=== PATIENT | female | born 1960 | race Caucasian/White ===

== ENCOUNTER 2019-01-13 10:26 | Day surgery (SDC) | payer BC ==
[2019-01-12 08:44] VITALS: BMI 27.4
[~2019-01-13 10:26] MED LIST: LACTATED RINGERS 1,000 ML IV SCH
[2019-01-13 10:47] VITALS: TEMP 96.9
[2019-01-13] MEDS ORDERED: LIDOCAINE 1% 20 ML VIAL (10MG/ML) FOR IV START INTRADERMA ONE (10:50)
[2019-01-13] MEDS ORDERED: PROPOFOL 10 MG/ML 20 ML VIAL IV ONE (11:32)
--- NOTE | 2019-01-13 11:46 | P.PCN ---
Date of Procedure: 01/13/19 Procedure(s) Performed: BRIEF HISTORY: Patient is a 58-year-old pleasant female scheduled for an elective colonoscopy as a part of screening for colorectal neoplasia. PROCEDURE PERFORMED: Colonoscopy. PREOPERATIVE DIAGNOSIS: Screening for colon cancer. IV sedation per Anesthesia. PROCEDURE: After informed consent was obtained, the patient, was brought into the endoscopy unit. IV sedation was administered by Anesthesia under continuous monitoring. Digital rectal examination was normal. Initially the Olympus CF-160 flexible video colonoscope was then inserted in the rectum, gradually advanced into the cecum without any difficulty. Careful examination was performed as the scope was gradually being withdrawn. Ileocecal valve and the appendiceal orifice were visualized and appeared normal. Prep was excellent. Mucosa of the cecum, ascending colon, transverse colon, descending colon, sigmoid colon, and rectum appeared normal. Scattered sigmoid diverticula seen. Retroflexion was performed in the rectum and no lesions were seen. The patient tolerated the procedure well. IMPRESSION: Normal-appearing colon from rectum to cecum with no evidence of colorectal neoplasia. Scattered sigmoid diverticulosis. RECOMMENDATIONS: Findings of this examination were discussed with the patient surveillance of family. She she was advised to have a repeat screening colonoscopy in 10 years
[2019-01-13 11:54] VITALS: RESP 18
[2019-01-13 12:09] VITALS: BP 128/76; PULSE 71
== END 2019-01-13 12:30 | disposition home or self-care (01) ==
LOC: ORWHC2ENDO 10:26
PROVIDERS: ATTEND Internal Medicine Gastroenterology
DX: Z12.11 Encounter for screening for malignant neoplasm of colon (principal); K57.30 Diverticulosis of large intestine without perforation or abscess without bleeding; M19.90 Unspecified osteoarthritis, unspecified site; Z79.1 Long term (current) use of non-steroidal anti-inflammatories (NSAID)
CPT/HCPCS: J2704; G0121; 45378

== ENCOUNTER → 2019-02-21 | Outpatient (CLI) | payer BC ==
--- NOTE | 2019-02-28 08:07 | HM ---
HOLTER MONITOR REPORT History of palpitations. A [address] Tillman, the monitor shows sinus mechanism with heart rates ranging from 47 to 160 to 173 beats per minute. No significant bradycardia or pauses during the daytime. Mild nighttime bradycardia. No significant bradyarrhythmias. MMODL / MANEN: [id number] /
== END | disposition home or self-care (01) ==
LOC: RADECHMAIN 12:14
PROVIDERS: ATTEND Family Medicine
DX: R00.2 Palpitations (principal); R07.9 Chest pain, unspecified
CPT/HCPCS: 93225; 93226

== ENCOUNTER → 2019-08-03 | Outpatient (CLI) | payer BC ==
--- NOTE | 2019-08-03 14:48 | BD ---
EXAMINATION TYPE: Axial Bone Density DATE OF EXAM: 08/03/2019 COMPARISON: NONE CLINICAL HISTORY: 59 YR OLD FEMALE....ICD-10 CODE: Z78.0 POST MENOPAUSAL Height: 62.3 Weight: 147 FRAX RISK QUESTIONS: NOTHING TO NOTE HERE RISK FACTORS HISTORY OF: NO FXs AFTER AGE 50 Active: YES Postmenopausal woman: YES, AT AGE 50 YRS OLD Hyperparathyroidism: NO Adrenal Insufficiency: NO MEDICATIONS: Additional Medications: CALCIUM AND VIT D RARELY, REFLUX MEDS, Additional History: REFLUX EXAM MEASUREMENTS: Bone mineral densitometry was performed using the [employer] [facility]. Bone mineral density as measured about the Lumbar spine is: ----- L1-L4(G/cm2): 1.122 T Score Values are as follows: ----- L1: 0.0 ----- L2: -0.6 ----- L3: -0.3 ----- L4: -1.1 ----- L1-L4: -0.5 Bone mineral density FIRST DEXA SCAN......BASELINE STUDY Bone mineral density about the R hip (g/cm2): 0.851 Bone mineral density about the L hip (g/cm2): 0.834 T Score values are as follows: -----R Neck: -1.7 -----L Neck: -2.0 -----R Total: -1.2 -----L Total: -1.4 Bone mineral density FIRST DEXA SCAN.....BASELINE STUDY FRAX%s: THERE IS A 9.1% CHANCE FOR A MAJOR OSTEOPOROTIC FX AND A 1.2% FOR HIP .....PROBABILITY FOR FX IN 10 YRS TIME IMPRESSION: Osteopenia (T Score between -2.5 and -1). There is slightly increased risk of fracture and the patient may be considered for treatment. Re-Screen 2-5 years. NOTE: T-SCORE=SD OF THE YOUNG ADULT MEAN.
--- NOTE | 2019-08-07 09:39 | MM ---
Reason for exam: screening (asymptomatic). Last mammogram was performed 5 years and 11 months ago. History: Patient is postmenopausal. Took hormonal contraceptives for 20 years beginning at age 26. Physical Findings: A clinical breast exam by your physician is recommended on an annual basis and results should be correlated with mammographic findings. MG 3D Screening Mammo W/Cad Bilateral CC and MLO view(s) were taken. Prior study comparison: August 22, 2013, bilateral digital screening mammo w/CAD. December 19, 2007, bilateral digital screening mammogram. The breast tissue is heterogeneously dense. This may lower the sensitivity of mammography. There is no discrete abnormality. No significant changes when compared with prior studies. ASSESSMENT: Negative, BI-RAD 1 RECOMMENDATION: Routine screening mammogram of both breasts in 1 year.
== END | disposition home or self-care (01) ==
LOC: RADMAMWWP 13:24
PROVIDERS: ATTEND Family Medicine
DX: Z12.31 Encounter for screening mammogram for malignant neoplasm of breast (principal); M85.80 Other specified disorders of bone density and structure, unspecified site; Z78.0 Asymptomatic menopausal state
CPT/HCPCS: 77063; 77067; 77080

== ENCOUNTER → 2022-04-17 | Outpatient (CLI) | payer BC ==
--- NOTE | 2022-04-17 09:45 | BD ---
EXAMINATION TYPE: Axial Bone Density DATE OF EXAM: 04/17/2022 COMPARISON: FIRST DEXA AT [facility] CLINICAL HISTORY: 62 years year old Female. ICD-10 CODE: Z78.0 ASYMPTOMATIC MENOPAUSAL STA Height: 62.5IN Weight: 149 FRAX RISK QUESTIONS: History of Fracture in Adulthood: YES Secondary Osteoporosis: RISK FACTORS HISTORY OF: Active: YES Postmenopausal woman: YES MEDICATIONS: Additional Medications: GI MED Additional History: EXAM MEASUREMENTS: Bone mineral densitometry was performed using the [employer]. Bone mineral density as measured about the Lumbar spine is: ----- L1-L4(G/cm2): 1.084 T Score Values are as follows: ----- L1: -0.9 ----- L2: -1.0 ----- L3: -0.5 ----- L4: -1.0 ----- L1-L4: -0.8 FIRST DEXA AT [facility] Bone mineral density about the R hip (g/cm2): 0.861 Bone mineral density about the L hip (g/cm2): 0.859 T Score values are as follows: -----R Neck: -1.9 -----L Neck: -2.1 -----R Total: -1.2 -----L Total: -1.2 FIRST DEXA AT [facility] FRAX%s: The graph provided illustrates a 17.4% chance for a major osteoporotic fx and a 2.6% chance f or the hips probability for fx in 10 years time. IMPRESSION: Osteopenia (T Score between -2.5 and -1). There is slightly increased risk of fracture and the patient may be considered for treatment. Re-Screen 2-5 years. NOTE: T-SCORE=SD OF THE YOUNG ADULT MEAN.
--- NOTE | 2022-04-20 09:10 | MM ---
Reason for Exam: Screening (asymptomatic). Last mammogram was performed 2 year(s) and 8 month(s) ago. Patient History: Menarche at age 13. First Full-Term at age 29. Postmenopausal. Patient has history of breast feeding. Hormonal Contraceptives, starting at age 26 for 20 years. Risk Values: Ludy 5 year model risk: 1.6%. NCI Lifetime model risk: 7.9%. Prior Study Comparison: 12/19/2007 Bilateral Screening Mammogram, [facility]. 08/22/2013 Bilateral Screening Mammogram, [facility]. 08/03/2019 Bilateral Screening Mammogram, [facility]. Tissue Density: The breast tissue is heterogeneously dense. This may lower the sensitivity of mammography. Findings: Analyzed By CAD. There is no suspicious group of microcalcifications or new suspicious mass in either breast. Overall Assessment: Negative, BI-RAD 1 Management: Screening Mammogram of both breasts in 1 year. A clinical breast exam by your physician is recommended on an annual basis and results should be correlated with mammographic findings. [facility] will attempt to contact patient to return for supplemental views and ultrasound if indicated. Electronically signed and approved by: Jeremías Duncan DO
== END | disposition home or self-care (01) ==
LOC: RADMAMWWP 08:44
PROVIDERS: ATTEND Family Medicine
DX: Z12.31 Encounter for screening mammogram for malignant neoplasm of breast (principal); M85.89 Other specified disorders of bone density and structure, multiple sites; Z78.0 Asymptomatic menopausal state
CPT/HCPCS: 77063; 77067; 77080

== ENCOUNTER → 2022-05-08 | Outpatient (CLI) | payer BC ==
--- NOTE | 2022-05-08 23:24 | CT ---
EXAMINATION TYPE: CT brain wo con DATE OF EXAM: 05/08/2022 HISTORY: Dizziness and headaches CT DLP: 1153.1 mGycm. Automated Exposure Control for Dose Reduction was Utilized. TECHNIQUE: CT scan of the head is performed without contrast. COMPARISON: None. FINDINGS: There is no acute intracranial hemorrhage or midline shift identified. Ventricles and sul ci within normal limits in size for patient's age. Davalos-white matter differentiation fairly well main tained. Nasal septum deviated to right of midline. No suspicious opacification of mastoid air cells i s seen. The globes are intact and the visualized sinuses are clear. IMPRESSION: No acute intracranial hemorrhage or midline shift. Unremarkable study.
== END | disposition home or self-care (01) ==
LOC: RADCTMAIN 18:31
PROVIDERS: ATTEND Family Medicine
DX: R51.9 Headache, unspecified (principal); R42 Dizziness and giddiness
CPT/HCPCS: 70450

== ENCOUNTER → 2023-03-30 | Outpatient (CLI) | payer BC ==
--- NOTE | 2023-03-30 21:13 | US ---
EXAMINATION TYPE: US carotid duplex BILAT DATE OF EXAM: 03/30/2023 COMPARISON: NONE CLINICAL INDICATION: Female, 62 years old with history of R42 DIZZINESS AND GIDDINESS; DIZZINESS X 2 YEARS TECHNIQUE: Carotid duplex ultrasound examination. Indirect Doppler criteria was utilized. FINDINGS: EXAM MEASUREMENTS: RIGHT: Peak Systolic Velocity (PSV) cm/sec ----- Right CCA: 85.2 ----- Right ICA: 118.9 ----- Right ECA: 64.4 ICA/CCA ratio: 1.4 RIGHT: End Diastole cm/sec ----- Right CCA: 31.4 ----- Right ICA: 46.2 ----- Right ECA: 16.0 LEFT: Peak Systolic Velocity (PSV) cm/sec ----- Left CCA: 60.7 ----- Left ICA: 93.1 ----- Left ECA: 66.8 ICA/CCA ratio: 1.5 LEFT: End Diastole cm/sec ----- Left CCA: 20.6 ----- Left ICA: 39.7 ----- Left ECA: 0.0 VERTEBRALS (direction of flow): Right Vertebral: Antegrade Left Vertebral: Antegrade Rhythm: Normal [employer] NOTES: No elevated velocities, VERY MINIMAL AREAS OF PLAQUE INCIDENTAL FINDING: bilateral thyroid nodules, limited imaging of most prominent inferior nodule on e ach side: Rt: 1.0x0.6x1.0cm Lt: 0.9x1.0x0.7 IMPRESSION: 1. No hemodynamically significant internal carotid artery stenosis on either side. 2. Incidental thyroid nodules. Largest measures up to 1.0 cm on either side. Consider dedicated thyro id ultrasound for further characterization and to determine subsequent follow-up. Criteria for Assigning % of Stenosis / Diameter reduction (Estimation based on the indirect measurements of the internal carotid artery velocities (ICA PSV). 1. Normal (no stenosis)=ICA PSV < 125 cm/s: ratio < 2.0: ICA EDV<40 cm/s. 2. Less than 50% stenosis=ICA PSV < 125 cm/s: ratio < 2.0: ICA EDV<40 cm/s. 3. 50 to 69% stenosis=ICA PSV of 125 to 230 cm/s: ration 2.0 ? 4.0: ICA EDV 40-100 cm/s. 4. Greater than 70% stenosis to near occlusion= ICA PSV > 230 cm/s: ratio > 4.0: ICA EDV > 100 cm/s. 5. Near occlusion= ICA PSV velocities may be low or undetectable: variable ratio and ICA EDV. 6. Total occlusion=unable to detect flow.
== END | disposition home or self-care (01) ==
LOC: RADUSWWP 10:52
PROVIDERS: ATTEND Family Medicine
DX: E04.2 Nontoxic multinodular goiter (principal); M54.2 Cervicalgia; R42 Dizziness and giddiness
CPT/HCPCS: 93880

== ENCOUNTER → 2023-05-25 | Outpatient (CLI) | payer BC ==
--- NOTE | 2023-05-25 15:12 | US ---
EXAMINATION TYPE: US thyroid st tissue head/neck DATE OF EXAM: 05/25/2023 COMPARISON: NONE CLINICAL INDICATION: Female, 63 years old with history of E04.1 NONTOXIC SINGLE THYROID NODULE; GLAND SIZE: Right Lobe: 5.1 x 1.3 x 1.6 cm Overall Parenchyma: homogenous; multiple nodules noted - largest listed below Left Lobe: 5.3 x 1.4 x 1.8 cm Overall Parenchyma: homogenous; multiple nodules noted - largest listed below Isthmus Thickness: 0.3 cm NODULES RIGHT: # of nodules measured on right: 2 1. 1.1 X 0.6 x 1.0 cm, lower medial, solid or almost completely solid, isoechoic nodule, which is w ider than tall, with smooth margins, without echogenic foci. TR 3. Prior size:none available 2. 0.7 X 0.5 x 0.6 cm, mid medial, solid or almost completely solid, isoechoic nodule, which is wid er than tall, with smooth margins, with echogenic foci. TR 4. Prior size: none available LEFT: # of nodules measured on left: 2 1. 0.8 X 0.5 x 0.8 cm, mid lateral, solid or almost completely solid, hypoechoic nodule, which is w ider than tall, with smooth margins, without echogenic foci. TR 4. Prior size: none available 2. 1.4 X 0.8 x 1.2 cm, lower medial, cystic or almost completely cystic, very hypoechoic nodule, w hich is wider than tall, with smooth margins, without echogenic foci. TR2. Prior size: none available ISTHMUS: # of nodules measured in the isthmus: 0 Bilateral neck scanned, no evidence of lymphadenopathy. IMPRESSION: Multinodular thyroid gland as described above. Follow-up ultrasound in one year is recommended.
--- NOTE | 2023-05-26 23:28 | MM ---
Reason for Exam: Screening (asymptomatic). Last mammogram was performed 1 year(s) and 2 month(s) ago. Patient History: Menarche at age 13. First Full-Term at age 29. Postmenopausal. Patient has history of breast feeding. Hormonal Contraceptives, starting at age 26 for 20 years. Risk Values: Ludy 5 year model risk: 1.7%. NCI Lifetime model risk: 7.7%. Prior Study Comparison: 08/22/2013 Bilateral Screening Mammogram, [facility]. 08/03/2019 Bilateral Screening Mammogram, [facility]. 04/17/2022 Bilateral MG 3D screening mammo w/cad, [facility]. Tissue Density: The breast tissue is heterogeneously dense. This may lower the sensitivity of mammography. Findings: Analyzed By CAD. There is no suspicious group of microcalcifications or new suspicious mass in either breast. Overall Assessment: Negative, BI-RAD 1 Management: Screening Mammogram of both breasts in 1 year. . Patient should continue monthly self-breast exams. A clinical breast exam by your physician is recommended on an annual basis. This exam should not preclude additional follow-up of suspicious palpable abnormalities. Note on Ludy scores and lifetime risk: 1. A Ludy score greater than 3% is considered moderate risk. If this is the case, consider specialist referral to assess eligibility for a risk reducing agent. 2. If overall lifetime risk for the development of breast cancer is 20% or higher, the patient may qualify for future screening with alternating mammogram and breast MRI. Electronically signed and approved by: Jt Pope M.D. Radiologist
== END | disposition home or self-care (01) ==
LOC: RADUSWWP 13:11
PROVIDERS: ATTEND Family Medicine
DX: Z12.31 Encounter for screening mammogram for malignant neoplasm of breast (principal); E04.2 Nontoxic multinodular goiter; Z78.0 Asymptomatic menopausal state
CPT/HCPCS: 76536; 77063; 77067

== ENCOUNTER 2023-11-18 09:10 | Day surgery (SDC) | payer BC ==
[2023-11-17 08:59] VITALS: BMI 26.5
[~2023-11-18 09:10] MED LIST changes: -LACTATED RINGERS 1,000 ML IV SCH; +SODIUM CHLORIDE 0.9% 1,000 ML IV SCH
[2023-11-18] MEDS: SODIUM CHLORIDE 0.9% 500 ML 500 ML IV ONE (09:39)
[2023-11-18 10:52] VITALS: BP 138/70; PULSE 73; RESP 16; TEMP 98.3
--- NOTE | 2023-11-18 18:57 | P.EPPROC ---
- EP Procedure Note Electrophysiology Procedure Note: Diagnosis Recurrent presyncope 12 EKG shows sinus rhythm normal WA narrow QRS normal ST segments normal QT interval Tilt table test per protocol Baseline blood pressure 154/70 mmHg, baseline heart rate 61 beats a minute Patient was tilted upright in angle of 70 degrees per protocol Immediate drop in her blood pressure to 126/63 mmHg. Pulse rate 77 beats a minute Thereafter there was a progressive drop in blood pressure with a minimal increase in heart rate in the 90s She started to feel hot when her blood pressure dropped to 86/55 mmHg. No syncope noted When she was laid supine her blood pressure improved to 126/69 mmHg Impression normal twelve-lead EKG Orthostatic hypotension syndrome
== END 2023-11-18 13:18 | disposition home or self-care (01) ==
LOC: CATHEP 09:10
PROVIDERS: ATTEND Internal Medicine Clinical Cardiac Electrophysiology
DX: R55 Syncope and collapse (principal); Z82.49 Family history of ischemic heart disease and other diseases of the circulatory system; Z79.899 Other long term (current) drug therapy; Z98.890 Other specified postprocedural states
CPT/HCPCS: 93660

== ENCOUNTER → 2024-12-01 | Outpatient (CLI) | payer BC ==
--- NOTE | 2024-12-01 10:25 | US ---
EXAMINATION TYPE: US thyroid st tissue head/neck DATE OF EXAM: 12/01/2024 COMPARISON: 05/25/2023 CLINICAL INDICATION: Female, 64 years old with history of E04.2 GOITER; follow up thyroid nodules TECHNIQUE: Grayscale and color Doppler imaging of the thyroid gland. FINDINGS: GLAND SIZE: Right Lobe: 4.5 x 1.5 x 1.7 cm Overall Parenchyma: homogeneous Left Lobe: 4.1 x 1.2 x 1.9 cm Overall Parenchyma: homogeneous Isthmus Thickness: 0.4 cm NODULES RIGHT: # of nodules measured on right: 2 1. 1.1 X 0.7 x 1.1 cm, lower medial, mixed cystic and solid, isoechoic TR 3 nodule, which is wider than tall, with smooth margins, without echogenic foci. Prior size: 1.1 x 0.6 x 1.0 cm 2. 0.6 X 0.4 x 0.5 cm, mid medial, solid or almost completely solid, hypoechoic TR 4 nodule, which is wider than tall, with smooth margins, with echogenic foci. Prior size: 0.7 x 0.5 x 0.6 cm LEFT: # of nodules measured on left: 2 1. 0.8 X 0.6 x 0.7 cm, mid lateral, solid or almost completely solid, hypoechoic TR 4 nodule, which is wider than tall, with smooth margins, without echogenic foci. Prior size: 0.8 x 0.5 x 0.8 cm 2. 1.1 X 0.8 x 1.3 cm, lower medial, mixed cystic and solid, hypoechoic TR 4 nodule, which is wide r than tall, with smooth margins, without echogenic foci. Prior size: 1.4 x 0.8 x 1.2 cm ISTHMUS: # of nodules measured in the isthmus: 0 Bilateral neck scanned, no evidence of lymphadenopathy. IMPRESSION: Consider multinodular goiter. There are TR3 and TR4 nodules. Dominant nodule is TR4 measuring 1.3 cm. Nodules are not significantly changed. TR3: If nodule size is ? 2.5 cm, FNA is recommended. If nodule size is ? 1.5 cm, follow-up imaging at 1, 3, and 5 years is recommended. TR4: If nodule size is ? 1.5 cm, FNA is recommended. If nodule size is ? 1.0 cm, follow-up imaging at 1, 2, 3, and 5 years is recommended. [facility], , 12/01/2024 10:23 AM
--- NOTE | 2024-12-01 10:38 | BD ---
EXAMINATION TYPE: Axial Bone Density DATE OF EXAM: 12/01/2024 CLINICAL HISTORY: 64 years old Female. ICD-10 CODE: M85.9 DISORDER BONE , Additional History: Height: 63 Weight: 152.4 FRAX RISK QUESTIONS: Alcohol (3 or more units per day): no Family History (Parent hip fracture): no Glucocorticoids (More than 3mos): no (Ex: prednisone, prednisolone, methylprednisolone, dexamethasone, and hydrocortisone). History of Fracture in Adulthood: yes Secondary Osteoporosis: 1. Type 1 Diabetes: no 2. Hyperthyroidism: no 3. Menopause before 45: no 4. Malnutrition: no 5. Chronic liver disease: no Rheumatoid Arthritis: no Current Tobacco Use: no RISK FACTORS HISTORY OF: History of Wrist Fracture: left wrist When: 2 years Surgery to Spine/Hip(right/left)/Wrist (right/left): no EXAM MEASUREMENTS: Bone mineral densitometry was performed using the [employer]. Bone mineral density as measured about the Lumbar spine is: ----- L1-L4(G/cm2): 1.077 T Score Values are as follows: ----- L1: -1.1 ----- L2: -0.9 ----- L3: -0.8 ----- L4: -0.9 ----- L1-L4: -0.9 Z Score Values are as follows: ----- L1: 0.2 ----- L2: 0.2 ----- L3: 0.6 ----- L4: 0.5 ----- L1-L4: 0.5 Bone mineral density has: decreased -0.6 % since study of: 04.17.2022 Bone mineral density about the R hip (g/cm2): 0.840 Bone mineral density about the L hip (g/cm2): 0.844 T Score values are as follows: -----R Neck: -2.0 -----L Neck: -2.2 -----R Total: -1.3 -----L Total: -1.3 Z Score values are as follows: -----R Neck: -0.7 -----L Neck: -0.9 -----R Total: -0.3 -----L Total: -0.3 Bone mineral density has: decreased -2.1 % since study of: . FRAX%s: The graph provided illustrates a 18.4% chance for a major osteoporotic fx and a 3.0% chance f or the hips probability for fx in 10 years time. IMPRESSION: Osteopenia (T Score between -2.5 and -1). There is slightly increased risk of fracture and the patient may be considered for treatment. Re-Screen 2-5 years. NOTE: T-SCORE=SD OF THE YOUNG ADULT MEAN. [facility], , 12/01/2024 10:35 AM
--- NOTE | 2024-12-01 10:40 | MM ---
Reason for Exam: Screening (asymptomatic). Last mammogram was performed 1 year(s) and 6 month(s) ago. Patient History: Menarche at age 13. First Full-Term at age 29. Postmenopausal. Patient has history of breast feeding. Hormonal Contraceptives, starting at age 26 for 20 years. Risk Values: Ludy 5 year model risk: 1.7%. NCI Lifetime model risk: 7.4%. Prior Study Comparison: 08/03/2019 Bilateral Screening Mammogram, [facility]. 04/17/2022 Bilateral MG 3D screening mammo w/cad, [facility]. 05/25/2023 Bilateral MG 3D screening mammo w/cad, [facility]. Tissue Density: The breasts are heterogeneously dense, which may obscure small masses. Findings: Analyzed By CAD. Benign-appearing bilateral axillary lymph nodes are redemonstrated. Stable asymmetric tissue upper aspect left breast. A few tiny benign-appearing round calcifications in the right breast are redemonstrated. There is no suspicious group of microcalcifications or new suspicious mass in either breast. Overall Assessment: Benign, BI-RAD 2 Management: Screening Mammogram of both breasts in 1 year. . Patient should continue monthly self-breast exams. A clinical breast exam by your physician is recommended on an annual basis. This exam should not preclude additional follow-up of suspicious palpable abnormalities. Note on Ludy scores and lifetime risk: 1. A Ludy score greater than 3% is considered moderate risk. If this is the case, consider specialist referral to assess eligibility for a risk reducing agent. 2. If overall lifetime risk for the development of breast cancer is 20% or higher, the patient may qualify for future screening with alternating mammogram and breast MRI. [facility], , 12/01/2024 10:37 AM. Electronically signed and approved by: Bladimir Albarran M.D.
== END | disposition home or self-care (01) ==
LOC: RADMAMWWP 09:30
PROVIDERS: ATTEND Family Medicine
DX: Z12.31 Encounter for screening mammogram for malignant neoplasm of breast (principal); E04.2 Nontoxic multinodular goiter; R92.333 Mammographic heterogeneous density, bilateral breasts; R92.1 Mammographic calcification found on diagnostic imaging of breast; Z78.0 Asymptomatic menopausal state; Z92.0 Personal history of contraception; M85.89 Other specified disorders of bone density and structure, multiple sites
CPT/HCPCS: 76536; 77063; 77067; 77080